=== PATIENT | female | born 2000 | race Caucasian/White ===

== ENCOUNTER 2024-11-25 10:21 | Emergency (ER) | payer MEDICAID ==
[~2024-11-25] VITALS: Ht 165.1 cm; Wt 160.0 kg
[2024-11-25 10:24] VITALS: O2SAT 98
[2024-11-25] MEDS ORDERED: LACTATED RINGERS 1,000 ML IV ONE (10:30)
[2024-11-25 10:59] VITALS: BP 148/89; PULSE 99; RESP 20; TEMP 36.5; O2SAT 100
== END 2024-11-25 11:14 | disposition left against medical advice (07) ==
LOC: ER 10:32
DX: R19.7 Diarrhea, unspecified (principal); I10 Essential (primary) hypertension
CPT/HCPCS: 99283; 93005; J7120